=== PATIENT | female | born 1965 | race Caucasian/White ===

== ENCOUNTER → 2017-07-20 | Outpatient (CLI) | payer OTHER ==
[2016-04-15 04:42] VITALS: BP 115/74
[2017-07-21 06:27] LABS: BASOPHILS # (AUTO) 0.1 X10^3/uL (0.0-0.1); BASOPHILS % (AUTO) 1.3 % (0.2-1.0); EOSINOPHILS # (AUTO) 0.2 x10^3/uL (0.0-0.2); HEMATOCRIT 41.7 % (36.0-47.0); HEMOGLOBIN 14.1 g/dL (12.0-16.0); LYMPHOCYTES # (AUTO) 2.3 X10^3/uL (1.3-2.9); LYMPHOCYTES % (AUTO) 34.7 % (21.0-51.0); MEAN CORPUSCULAR HEMOGLOBIN 26.4 pg (27.0-34.0); MEAN CORPUSCULAR HGB CONC 33.8 g/dL (33.0-35.0); MONOCYTES # (AUTO) 0.6 x10^3/uL (0.3-0.8); MONOCYTES % (AUTO) 8.4 % (0.0-13.0); NEUTROPHILS # (AUTO) 3.5 x10^3/uL (2.2-4.8); NEUTROPHILS % (AUTO) 52.6 % (42.0-75.0); PLATELET COUNT 264 X10^3/uL (150.0-450.0); RED BLOOD COUNT 5.35 X10^6/uL (3.5-5.4); RED CELL DISTRIBUTION WIDTH 14.5 % (11.6-16.5); WHITE BLOOD COUNT 6.7 X10^3/uL (3.6-10.0)
[2017-07-21 06:51] LABS: ALANINE AMINOTRANSFERASE 25 Units/L (12-78); ALBUMIN 4.5 g/dL (3.4-5.0); ALKALINE PHOSPHATASE 123 Units/L (46-116); AMYLASE 49 Units/L (25-115); ASPARTATE AMINO TRANSFERASE 19 Units/L (15-37); BLOOD UREA NITROGEN 16 mg/dL (7-18); CALCIUM 9.2 mg/dL (8.5-10.1); CARBON DIOXIDE 26.6 mmol/L (21-32); CHLORIDE 107 mmol/L (98-107); CREATININE 0.85 mg/dL (0.55-1.02); LIPASE 224 Units/L (73-393); SODIUM 145 mmol/L (136-145); TOTAL PROTEIN 7.8 g/dL (6.4-8.2); eGFR BLACK RACES > 60 (>60); eGFR NON BLACK RACES > 60 (>60)
== END ==
LOC: LAB 18:19
PROVIDERS: ATTEND Nurse Practitioner Family
DX: R10.84 Generalized abdominal pain (principal); R11.2 Nausea with vomiting, unspecified
CPT/HCPCS: 36415; 80053; 82150; 83690; 85025

== ENCOUNTER → 2017-07-22 | Outpatient (CLI) | payer OTHER ==
[2016-04-15 04:42] VITALS: BP 115/74
[~2017-07-22] MED LIST: NS 100 ML IV 100 ML IV ONE
--- NOTE | 2017-07-22 11:21 | CT ---
HISTORY: Chronic peptic ulcer, nausea Study: CT abdomen and pelvis with contrast Comparison: 04/15/2016 Technique: Multiple axial images of the abdomen and pelvis were obtained with IV contrast. Oral contrast was ad ministered. Dose reduction techniques including Automated Exposure Control (AEC) and adjustment of mA and kV were utilized. Findings: The visualized portions of the lung bases are clear. Stable small hypodense lesion in medial segment of the left hepatic lobe. The spleen, pancreas, kidneys and adrenal glands are unremarkable. The gal lbladder is removed. No free intraperitoneal air. No evidence of intestinal obstruction or inflammation. The appendix is r emoved. Oral contrast reaches the transverse colon. No free fluid is identified. The soft tissues and osseous structures are unremarkable. The vascular structures are within normal l imits for age. No pathologically enlarged lymph nodes are identified. The urinary bladder is normal. Multiple injection site granulomas are seen in the bilateral gluteal regions. IMPRESSION: 1.Negative CT of the abdomen and pelvis. Reported By:
== END ==
LOC: EDSTATUS 09:00 → RAD 09:07
PROVIDERS: ATTEND Nurse Practitioner Family
DX: K57.30 Diverticulosis of large intestine without perforation or abscess without bleeding (principal); K27.7 Chronic peptic ulcer, site unspecified, without hemorrhage or perforation; R11.0 Nausea; R10.84 Generalized abdominal pain
CPT/HCPCS: 74177; A4222

== ENCOUNTER 2022-06-01 17:44 | Observation (INO) ==
[2022-06-01] MEDS ORDERED: PHENERGAN INJ 25 MG IM PRN (18:27)
[2022-06-01] MEDS ORDERED: PEPCID 20 MG VIAL IVP ONE (18:27)
[2022-06-01] MEDS ORDERED: ROCEPHIN VIAL 1 GRAM 1 G in NS 100 ML IV 100 ML IV SCH (18:30)
--- NOTE | 2022-06-01 20:01 | RAD ---
HISTORYVIRAL SYNDROMESTUDYCHEST, PA/LAT ADULTCOMPARISONOctober 2021TECHNIQUEPA and lateral projections, 2 imagesFINDINGSCardiac silhouette is normal in size and configuration.Pulmonary vascular sizes are normal.No effusion.No focal airspace disease.No pneumothorax.No acute osseous abnormalityIMPRESSIONNo imaging findings of acute cardiopulmonary disease.Electronically signed by: Willis Jim (Jun 01, 2022 20:00:15)
--- NOTE | 2022-06-01 20:04 | RAD ---
HISTORYN/VSTUDYKUBCOMPARISONMemorial Medical CenterAP supine projection, 1 imageFINDINGSGas and stool in non-distended colon.Gas in scattered loops of non-distended small bowel.No gross free air.No abnormal calcifications.No acute osseous abnormality.IMPRESSIONNo acute intra-abdominal abnormality detected.Electronically signed by: Willis Jim (Jun 01, 2022 20:03:29)
[2022-06-01 20:26] VITALS: BMI 28.4
[2022-06-01 20:28] LABS: BASOPHILS % (AUTO) 0.4 % (0.2-1.0); EOSINOPHILS # (AUTO) 0.1 x10^3/uL (0.0-0.2); EOSINOPHILS % (AUTO) 0.9 % (0.9-2.9); HEMATOCRIT 42.2 % (36.0-47.0); LYMPHOCYTES # (AUTO) 1.7 X10^3/uL (1.3-2.9); LYMPHOCYTES % (AUTO) 22.9 % (21.0-51.0); MEAN CORPUSCULAR HGB CONC 33.2 g/dL (33.0-35.0); MEAN CORPUSCULAR VOLUME 81.2 fL (80.0-100.0); MEAN PLATELET VOLUME 8.6 fL (7.4-11.0); MONOCYTES % (AUTO) 12.6 % (0.0-13.0); NEUTROPHILS # (AUTO) 4.8 x10^3/uL (2.2-4.8); NEUTROPHILS % (AUTO) 63.2 % (42.0-75.0); RED CELL DISTRIBUTION WIDTH 13.4 % (11.6-16.5); WHITE BLOOD COUNT 7.6 X10^3/uL (3.6-10.0)
[2022-06-01 20:36] LABS: ALANINE AMINOTRANSFERASE 19 Units/L (12-78); ALBUMIN 3.5 g/dL (3.4-5.0); ALKALINE PHOSPHATASE 104 Units/L (46-116); AMYLASE 46 Units/L (25-115); ASPARTATE AMINO TRANSFERASE 20 Units/L (15-37); BLOOD UREA NITROGEN 11 mg/dL (7-18); CALCIUM 8.4 mg/dL (8.5-10.1); CARBON DIOXIDE 27.3 mmol/L (21-32); CHLORIDE 107 mmol/L (98-107); CREATINE KINASE 89 Units/L (26-192); CREATININE 0.93 mg/dL (0.55-1.02); LIPASE 220 Units/L (73-393); MAGNESIUM 1.8 mg/dL (2.0-2.9); SODIUM 143 mmol/L (136-145); TOTAL PROTEIN 6.4 g/dL (6.4-8.2); eGFR NON BLACK RACES > 60 (>60)
[2022-06-01] MEDS ORDERED: PEPCID 20 MG VIAL ONE (20:51)
[2022-06-01] MEDS ORDERED: NS 50 ML IV 50 ML IV ONE (20:53)
[2022-06-01] MEDS: DUONEB 0.5 MG/3 MG (3 mL) NEB SCH (21:00)
[2022-06-01] MEDS: NS 1,000 ML IV 1,000 ML IV SCH (21:01)
[2022-06-01] MEDS: PROTONIX INJ 40 MG VIAL IVP SCH (21:02)
[2022-06-01] MEDS: PLAQUENIL PO SCH (21:02)
[2022-06-01] MEDS: RESTORIL CAP 15 MG PO PRN (22:00)
[2022-06-01] MEDS ORDERED: POTASSIUM CHL 60 MEQ/NS 0.45% 500 ML IV PRN (22:22)
[2022-06-01] MEDS ORDERED: POTASSIUM CHL 40 MEQ/NS 0.45% 500 ML IV PRN (22:22)
[2022-06-01] MEDS ORDERED: K-RIDER 10 MEQ/NS 100 ML 10 MEQ/100 ML BAG IV PRN (22:22)
[2022-06-01] MEDS ORDERED: KLOR-CON PO PRN (22:22)
[2022-06-01] MEDS ORDERED: MICRO K EXTEN CAP 10 MEQ PO PRN (22:22)
[2022-06-01] MEDS ORDERED: POTASSIUM CHLORIDE LIQ 20 MEQ UDC PO PRN (22:22)
[2022-06-01 23:59] LABS: BILIRUBIN,URINE NEGATIVE (NEGATIVE); BLOOD/HEMOGLOBIN,URINE NEGATIVE (NEGATIVE); GLUCOSE, URINE NEGATIVE (NEGATIVE); KETONES,URINE NEGATIVE (NEGATIVE); LEUKOCYTE ESTERASE ,URINE NEGATIVE (NEGATIVE); NITRITES,URINE NEGATIVE (NEGATIVE); PROTEIN,URINE NEGATIVE (NEGATIVE); UROBILINOGEN,URINE NORMAL (NORMAL)
[2022-06-02 00:01] LABS: APPEARANCE,URINE CLEAR (CLEAR); COLOR,URINE STRAW (YELLOW)
[2022-06-02] MEDS: K-DUR TAB 20 MEQ PO PRN ×2 (01:49→09:32)
[2022-06-02] MEDS: NS 1,000 ML IV 1,000 ML IV SCH ×3 (03:21→18:11)
[2022-06-02 06:19] LABS: BASOPHILS % (AUTO) 0.5 % (0.2-1.0); EOSINOPHILS % (AUTO) 0.6 % (0.9-2.9); HEMATOCRIT 38.5 % (36.0-47.0); HEMOGLOBIN 12.9 g/dL (12.0-16.0); LYMPHOCYTES # (AUTO) 1.6 X10^3/uL (1.3-2.9); LYMPHOCYTES % (AUTO) 26.8 % (21.0-51.0); MEAN CORPUSCULAR HGB CONC 33.5 g/dL (33.0-35.0); MEAN CORPUSCULAR VOLUME 80.6 fL (80.0-100.0); MEAN PLATELET VOLUME 9.2 fL (7.4-11.0); MONOCYTES # (AUTO) 0.7 x10^3/uL (0.3-0.8); NEUTROPHILS # (AUTO) 3.7 x10^3/uL (2.2-4.8); NEUTROPHILS % (AUTO) 60.1 % (42.0-75.0); RED BLOOD COUNT 4.77 X10^6/uL (3.5-5.4); RED CELL DISTRIBUTION WIDTH 13.1 % (11.6-16.5); WHITE BLOOD COUNT 6.1 X10^3/uL (3.6-10.0)
[2022-06-02 06:45] LABS: ALANINE AMINOTRANSFERASE 18 Units/L (12-78); ALKALINE PHOSPHATASE 93 Units/L (46-116); ASPARTATE AMINO TRANSFERASE 17 Units/L (15-37); BLOOD UREA NITROGEN 8 mg/dL (7-18); CALCIUM 8.3 mg/dL (8.5-10.1); CARBON DIOXIDE 24.9 mmol/L (21-32); CHLORIDE 108 mmol/L (98-107); COR CA(FOR HYPOALB) 9.1 mg/dL (8.5-10.1); CREATININE 0.85 mg/dL (0.55-1.02); MAGNESIUM 1.9 mg/dL (2.0-2.9); SODIUM 142 mmol/L (136-145); TOTAL PROTEIN 5.7 g/dL (6.4-8.2); eGFR NON BLACK RACES > 60 (>60)
--- NOTE | 2022-06-02 08:49 | DR.H&P ---
H&P - History & Physical for Day of: H&P Date: 06/01/22 - Chief Complaint Chief Complaint: NAUSEA AND VOMITING, WEAKNESS "DEHYDRATED" - History of Present Illness History of Present Illness: PT IS 56 WF WHO HAS BEEN SICK WITH UPPER RESPIRATORY ILLNESS SINCE 05/24, SHE TOOK PO MEDICATION AND IM ROCEPHIN AND KENALOG WITH LITTLE IMPROVEMENT. PT STARTED WITH GI SYMPTOMS ON TUESDAY AND CONTINUED WITH VOMITING AND WEAKNESS. PT HAS PMH OF LUPUS, OA, GERD, HTN. PT ADMITTED FOR TREATMENT AND EVALUATION OF ACUTE ILLNESS. - Past Medical History Past Medical History: Hypertension, Depression, Hypothyroidism, PUD, GERD, Arthritis, Headaches - Past Surgical History Surgical History: Cholecystectomy, Hysterectomy - Family History Family Medical History: Cancer, [place], Coronary Artery Disease, Hypertension - Social History Does patient currently use any type of tobacco product: No Have you used tobacco products in the last 12 months: No Type of Tobacco Use: None Does any household member use tobacco: No Alcohol Use: None Drug Use: None - Medications Home Medications: No Known Drug Allergies Allergy (Unknown, Verified 06/01/22 20:22) CONTINUE taking the following medications desvenlafaxine succinate 50 mg tablet,extended release 24 hr 50 mg PO QDAY 06/01/22 [History] dextroamphetamine-amphetamine 20 mg tablet 20 mg PO QDAY 06/01/22 [History] doxepin 25 mg capsule 25 mg PO QPM 06/01/22 [History] levothyroxine 88 mcg tablet (Synthroid) 88 mcg PO QDAY 06/01/22 [History] progesterone micronized 100 mg capsule 100 mg PO QPM 06/01/22 [History] - Review of Systems Constitutional: Chills, Weakness, Malaise Eyes: No Symptoms Reported ENT: Nose Congestion Respiratory: Cough Cardiovascular: No Symptoms Reported Gastrointestinal: Nausea, Vomiting, Diarrhea Genitourinary: No Symptoms Reported Musculoskeletal: Back Pain Skin: No Symptoms Reported Neurological: Weakness - Physical Exam Vital Signs: Temperature 97.9 F Pulse Rate [Brachial] 63 Pulse Rate 73 Respiratory Rate 18 Blood Pressure [Left Arm] 134/67 Blood Pressure [Right Arm] 115/74 Blood Pressure [Standing] 110/64 Blood Pressure [Sitting] 136/72 Blood Pressure [Lying] 152/74 Blood Pressure 104/70 O2 Sat by Pulse Oximetry 99 Oriented: Normal Eyes: Normal Ear: Normal Nose: Normal Throat: Normal Respiratory: RLL Diminished, LLL Diminished Cardiovascular: Normal : Normal Auscultation: Bowel Sounds: Increased Tenderness: Epigastric, Mild Skin: Decreased Turgur Musculoskeletal: Back:Lumbar Psychiatric: Anxiety Affect: Angry Speech Pattern: Clear, Appropriate - Assessment/Plan (1) Acute gastroenteritis Status: Acute Plan: ADMIT, IV HYDRATION,PAIN AND NAUSEA CONTROL. VERIFY HOME MEDICATION. PROTONIX, PEPCID THERAPY. AMYLASE AND LIPASE ON ADMISSION. VIRAL RESP PANEL ON ADMISSION (2) Dehydration, mild Status: Acute (3) Gastroenteritis Status: Acute (4) HTN (hypertension) Qualifiers: Hypertension type: essential hypertension Status: Chronic (5) GERD (gastroesophageal reflux disease) Status: Chronic (6) Hypothyroidism Status: Chronic - Allergies Allergies/Adverse Reactions: Allergies Allergy/AdvReac Type Severity Reaction Status Date / Time No Known Drug Allergies Allergy Unknown Verified 06/01/22 20:22
[2022-06-02] MEDS ORDERED: SYNTHROID 100 mcg TAB PO SCH (09:00)
[2022-06-02] MEDS ORDERED: ROCEPHIN VIAL 1 GRAM 1 G in NS 100 ML IV 100 ML IV SCH (09:00)
[2022-06-02] MEDS: PULMICORT NEB TX 0.5 MG NEB SCH ×2 (09:10→20:55)
[2022-06-02] MEDS: DUONEB 0.5 MG/3 MG (3 mL) NEB SCH ×4 (09:10→20:55)
[2022-06-02] MEDS: PLAQUENIL PO SCH ×2 (09:32→20:23)
[2022-06-02] MEDS: PROTONIX INJ 40 MG VIAL IVP SCH (09:33)
[2022-06-02] MEDS: MAGNESIUM SULFATE 1 GRAM/100 mL PREMIX 1 G/100 ML BAG IV PRN ×2 (09:36→16:20)
[2022-06-02] MEDS: TORADOL 15 MG VIAL IVP PRN ×2 (09:36→20:24)
[2022-06-02] MEDS: LOVENOX INJ 40 MG SYR SC SCH (11:01)
[2022-06-02] MEDS: FLAGYL IV PREMIX 500 MG BAG 500 MG/100 ML BAG IV SCH ×3 (13:31→20:24)
[2022-06-02] MEDS: MORPHINE SULFATE INJ 2 MG INJ IVP PRN (16:19)
[2022-06-02] MEDS: DESVENLAFAXINE SUCCINATE 50 MG PO SCH (17:08)
[2022-06-02] MEDS: RESTORIL CAP 15 MG PO PRN (20:59)
[2022-06-02] MEDS ORDERED: SINEquan PO SCH (21:00)
[2022-06-03] MEDS: MORPHINE SULFATE INJ 2 MG INJ IVP PRN (00:15)
[2022-06-03] MEDS: FLAGYL IV PREMIX 500 MG BAG 500 MG/100 ML BAG IV SCH ×3 (02:12→14:25)
[2022-06-03] MEDS: NS 1,000 ML IV 1,000 ML IV SCH ×2 (02:12→11:37)
[2022-06-03 05:55] LABS: BASOPHILS # (AUTO) 0.1 X10^3/uL (0.0-0.1); BASOPHILS % (AUTO) 1.1 % (0.2-1.0); EOSINOPHILS # (AUTO) 0.1 x10^3/uL (0.0-0.2); EOSINOPHILS % (AUTO) 1.3 % (0.9-2.9); HEMATOCRIT 37.5 % (36.0-47.0); HEMOGLOBIN 12.2 g/dL (12.0-16.0); LYMPHOCYTES # (AUTO) 1.4 X10^3/uL (1.3-2.9); LYMPHOCYTES % (AUTO) 30.5 % (21.0-51.0); MEAN CORPUSCULAR HEMOGLOBIN 26.8 pg (27.0-34.0); MEAN CORPUSCULAR HGB CONC 32.5 g/dL (33.0-35.0); MEAN CORPUSCULAR VOLUME 82.2 fL (80.0-100.0); MEAN PLATELET VOLUME 9.2 fL (7.4-11.0); MONOCYTES # (AUTO) 0.6 x10^3/uL (0.3-0.8); MONOCYTES % (AUTO) 12.3 % (0.0-13.0); NEUTROPHILS # (AUTO) 2.6 x10^3/uL (2.2-4.8); NEUTROPHILS % (AUTO) 54.8 % (42.0-75.0); RED BLOOD COUNT 4.57 X10^6/uL (3.5-5.4); RED CELL DISTRIBUTION WIDTH 13.4 % (11.6-16.5); WHITE BLOOD COUNT 4.7 X10^3/uL (3.6-10.0)
[2022-06-03 06:06] LABS: ALANINE AMINOTRANSFERASE 17 Units/L (12-78); ALKALINE PHOSPHATASE 93 Units/L (46-116); ASPARTATE AMINO TRANSFERASE 18 Units/L (15-37); BLOOD UREA NITROGEN 4 mg/dL (7-18); CALCIUM 7.8 mg/dL (8.5-10.1); CARBON DIOXIDE 27.1 mmol/L (21-32); CHLORIDE 111 mmol/L (98-107); COR CA(FOR HYPOALB) 8.6 mg/dL (8.5-10.1); SODIUM 145 mmol/L (136-145); TOTAL PROTEIN 5.7 g/dL (6.4-8.2); eGFR NON BLACK RACES > 60 (>60)
--- NOTE | 2022-06-03 07:41 | CT ---
HISTORYLeft lower quadrant painSTUDYCT abdomen pelvis with contrastTechnique: Axial post-contrast images with coronal and sagittal reformats. Dose reduction procedures were used with mA/kv adjusted for body size.COMPARISONNone availableFINDINGSThe lung bases are clear. The liver, spleen, adrenal glands, and pancreas are within normal limits. Patient is status post cholecystectomy. Kidneys are unobstructed and without stones or masses. No ureteral calculi are identified. Abdominal aorta is normal. No enlarged intraperitoneal or retroperitoneal lymphadenopathy is identified. The appendix is not identified with absolute certainty. There are no secondary signs of appendicitis. There are no findings suggestive of enteritis or diverticulitis. The descending colon is devoid of contents. There is a question of transmural thickening in the proximal and mid descending colon. This could be artifactual and due to nondistention however a developing acute colitis is not entirely excluded and clinical correlation as the presence or absence of abdominal pain and diarrhea recommended. No pelvic masses, pelvic fluid, pelvic lymphadenopathy is identified. No bladder abnormality is identified. No lytic or blastic skeletal lesions of significance are identified.IMPRESSIONThere is a question of some mild transmural thickening involving the descending colon. However this section of the colon is devoid of contents. The appearance of transmural thickening may be artifactual and due to nondistention however a developing colitis is not entirely excluded radiographically. Clinical and historical correlation is recommended.Electronically signed by: JAYNE LUIS (Jun 03, 2022 07:40:15)
[2022-06-03] MEDS: LOVENOX INJ 40 MG SYR SC SCH (08:47)
[2022-06-03] MEDS: PLAQUENIL PO SCH (08:48)
[2022-06-03] MEDS ORDERED: SYNTHROID 88 mcg TAB PO SCH (09:00)
[2022-06-03] MEDS: PROTONIX INJ 40 MG VIAL IVP SCH (09:08)
[2022-06-03] MEDS: DESVENLAFAXINE SUCCINATE 50 MG PO SCH (09:09)
[2022-06-03] MEDS: PULMICORT NEB TX 0.5 MG NEB SCH (09:11)
[2022-06-03] MEDS: DUONEB 0.5 MG/3 MG (3 mL) NEB SCH (09:11)
[2022-06-03] MEDS ORDERED: PEPCID 20 MG VIAL IVP ONE (10:56)
[2022-06-03] MEDS: BENTYL CAP 10 MG PO SCH ×2 (11:34→14:58)
[2022-06-03 13:50] VITALS: BP 135/70
== END 2022-06-03 16:00 | disposition home or self-care (01) ==
LOC: MED/SURG
PROVIDERS: ADMIT Internal Medicine; ATTEND Internal Medicine